=== PATIENT | female | born 1995 | race Hispanic/Latino ===

== ENCOUNTER 2025-04-29 06:34 | Inpatient (IN) | payer MEDICAID, OTHER, SELFPAY ==
[2025-04-29] MEDS ORDERED: hydrALAZINE 20 MG/ML VIAL SLOW IVP PRN ×3 (06:43→19:05)
[2025-04-29 07:14] LABS: Fetal Membranes Rupture RUPTURE DETECTED (No Rupture)
[2025-04-29] MEDS ORDERED: Carboprost 250 MCG/ML AMP IM PRN (07:15)
[2025-04-29] MEDS ORDERED: Oxytocin 30 units/NS 500 ML 500 ML IV SCH ×3 (07:15→19:15)
[2025-04-29] MEDS ORDERED: Methylergonovine 0.2 MG/ML VIAL IM PRN ×2 (07:15→19:05)
[2025-04-29] MEDS ORDERED: Ondansetron PF 4 MG/2 ML Vial IVP PRN ×5 (07:15→19:18)
[2025-04-29] MEDS ORDERED: Tranexamic Acid 1,000 MG/10 ML VIAL IVP PRN (07:15)
[2025-04-29] MEDS ORDERED: Acetaminophen 500 MG TAB PO PRN (07:15)
[2025-04-29] MEDS ORDERED: Ibuprofen 800 MG TAB PO PRN (07:50)
[2025-04-29] MEDS ORDERED: Lidocaine 1% (PF) 30 ML VIAL SC PRN (07:50)
[2025-04-29 08:09] VITALS: BMI 25.5
[2025-04-29 08:13] LABS: Hematocrit 40.7 % (34.9-44.5); Hemoglobin 13.9 g/dL (12.0-15.5); Mean Corpuscular Hemoglobin 30.2 pg (27.0-33.0); Mean Corpuscular Volume 88.5 fL (81.6-98.3); Platelet Count 269 10x3/uL (150-450); Red Blood Cell (RBC) Count 4.60 10x6/uL (3.90-5.03); White Blood Cell (WBC) Count 12.30 10x3/uL (3.5-10.5)
[2025-04-29 08:46] LABS: Hep B Surf Ag - L&D Non-Reactive S/CO (NonReactive)
[2025-04-29 08:47] LABS: Syphilis Antibody Index 0.06 S/CO (<1.00 Non-Reactive)
[2025-04-29] MEDS: fentaNYL/Ropivacaine Epidural 100 ML ONE (09:23)
[2025-04-29] MEDS ORDERED: Acetaminophen 325 MG TAB PO PRN (11:27)
[2025-04-29] MEDS ORDERED: diphenhydrAMINE 50 MG/ML VIAL IVP PRN ×2 (11:27→19:18)
[2025-04-29] MEDS ORDERED: fentaNYL 2 mcg/Ropivacaine 0.2% Epidural 100 ML CADD EPIDURAL SCH (11:30)
[2025-04-29] MEDS ORDERED: NO NARCS FOR 12 HOURS FS PRN (11:30)
[2025-04-29] MEDS ORDERED: Azithromycin 500 MG in Sodium Chloride 0.9% 250 ML 250 ML IVPB SCH (18:00)
[2025-04-29 18:32] LABS: Analyzer IN Cardio CS NICU; RapidComm Collect By RN; pH (Cord, venous) 7.305 (7.250-7.350)
[2025-04-29] MEDS: Diphenoxylate HCl/Atropine Tablet PO PRN (18:35)
[2025-04-29 18:36] LABS: Analyzer IN Cardio CS NICU; RapidComm Collect By RN
[2025-04-29] MEDS ORDERED: Simethicone Chewable 80 MG TAB PO PRN (19:05)
[2025-04-29] MEDS ORDERED: Methylergonovine 0.2 MG TAB PO PRN (19:05)
[2025-04-29] MEDS ORDERED: Lanolin Ointment 7 GM TUBE TOP PRN (19:05)
[2025-04-29] MEDS ORDERED: HYDROmorphone 0.5 MG/0.5 ML SYRINGE SLOW IVP PRN (19:18)
[2025-04-29] MEDS ORDERED: Meperidine HCl/PF 25 MG (1 mL) VIAL SLOW IVP PRN (19:18)
[2025-04-29] MEDS ORDERED: Ketorolac Tromethamine 30 MG (1 mL) VIAL IVP SCH (19:30)
[2025-04-29] MEDS ORDERED: Communication Order-Pharmacy FS SCH (19:30)
[2025-04-29] MEDS: CEFAZOLIN 2 GM VIAL ONE (22:18)
[2025-04-29] MEDS: Lidocaine 2% MPF 10 ML AMP (For Epidural Use) ONE ×2 (22:18→22:19)
[2025-04-29] MEDS: Azithromycin 500 MG VIAL ONE (22:18)
[2025-04-29] MEDS: PHENYLEPHRINE-NS 100 MCG/ML 10 ML SYRINGE ONE (22:19)
[2025-04-29] MEDS: Famotidine/PF 20 mg/2ml Vial ONE (22:19)
[2025-04-29] MEDS: Ondansetron PF 4 MG/2 ML Vial ONE (22:19)
[2025-04-29] MEDS: Dexamethasone 10 MG/ML VIAL ONE (22:19)
[2025-04-29] MEDS: Oxytocin 10 UNITS/ML VIAL ONE ×3 (22:19)
[2025-04-29] MEDS: Ferrous Sulfate 325 MG TAB PO SCH (22:20)
[2025-04-29] MEDS: Clindamycin/D5W 900 MG in Premix 1 BAG IVPB SCH (23:33)
[2025-04-30 03:46] LABS: #Basophils 0.03 10x3/uL (0.0-0.2); #Eosinophils Less than 0.03 10x3/uL (0.0-0.5); #Monocytes 1.06 10x3/uL (0.0-1.1); #Neutrophils 20.34 10x3/uL (1.5-8.4); %Basophils 0.1 % (0.0-2.0); %Eosinophils 0.0 % (0.0-6.0); %Lymphocytes 5.8 % (18.0-47.0); %Monocytes 4.6 % (0.0-10.0); %Neutrophils 88.9 % (40.0-75.0); Hematocrit 34.6 % (34.9-44.5); Hemoglobin 11.9 g/dL (12.0-15.5); Mean Corpuscular Hemoglobin 30.3 pg (27.0-33.0); Mean Corpuscular Volume 88.0 fL (81.6-98.3); Platelet Count 241 10x3/uL (150-450); Red Blood Cell (RBC) Count 3.93 10x6/uL (3.90-5.03); White Blood Cell (WBC) Count 22.90 10x3/uL (3.5-10.5)
[2025-04-30] MEDS: Ketorolac Tromethamine 30 MG (1 mL) VIAL IVP PRN (05:17)
[2025-04-30] MEDS: Boostrix 0.5 ML (Tdap) VIAL (>/=7 yrs of age) IM ONE (07:19)
[2025-04-30] MEDS: Acetaminophen 325 MG TAB PO PRN (08:58)
[2025-04-30] MEDS ORDERED: Bupivacaine HCl 0.5%/Epinephrine 1:200,000/PF 30 ml Vial ONE (13:13)
[2025-04-30] MEDS ORDERED: Bupivacaine 0.25% HCL 30 ML VIAL ONE (13:13)
[2025-05-01] MEDS: Ibuprofen 800 MG TAB PO SCH (00:51)
[2025-05-01 03:33] VITALS: TEMP 98.1
[2025-05-01 07:43] VITALS: BP 100/55
[2025-05-01] MEDS: Measles/Mumps/Rubella 10 MCG/0.5 ML VIAL SC ONE (11:12)
== END 2025-05-01 13:35 | disposition home or self-care (01) | DRG 788 ==
LOC: CSHLD/OP 06:34 → CSHLD 11:49 → CSHPP 21:50
PROVIDERS: ADMIT Obstetrics & Gynecology; ATTEND Obstetrics & Gynecology
PROC: 10D00Z1 Extraction of Products of Conception, Low, Open Approach (ICD-10-PCS; principal; 2025-04-29)
PROC: 4A1HXCZ Monitoring of Products of Conception, Cardiac Rate, External Approach (ICD-10-PCS; 2025-04-29)
PROC: 10H07YZ Insertion of Other Device into Products of Conception, Via Natural or Artificial Opening (ICD-10-PCS; 2025-04-29)
DX: O42.92 Full-term premature rupture of membranes, unspecified as to length of time between rupture and onset of labor (principal); O33.9 Maternal care for disproportion, unspecified; Z3A.38 38 weeks gestation of pregnancy; Z79.899 Other long term (current) drug therapy; Z37.0 Single live birth
CPT/HCPCS: 36415; 51702; 82805; 84112; 85025; 85027; 85461; 86780; 86850; 86900; 86901; 87340; 88307; 90384; 90707; 96372; 99285; J0290; J0665; J1100; J1308; J1580; J1885; J2274; J2405; J2550; J2590; J3490